=== PATIENT | female | born 1965 | race Caucasian/White ===

== ENCOUNTER → 2019-10-27 | Outpatient (CLI) | payer OTHER ==
[~2019-10-27] MED LIST: ALBU90OI6 INH; ALBUTEROL INH; ALPR.5 PO; BREO ELLIPTA 11 EACH INH; Bactrim Ds Tab1 EACH PO; CEPH500 PO; ERYT.5TO OS; ESCI10 PO; GABAPENTIN; HYDACE5 PO; KLONAPIN; LEXAPRO; MVI; OXYC30 PO; OXYCODONE; PIRO10 PO; PRO; QUET25 PO; RISPERDAL PO; ROXICODONE; SUBOXONE 8 MG-1 EACH SL; SULTRIDS PO; SULTRISS PO; TOPAMAX PO; TOPI100 PO; TRAM50 PO; VARE1 PO
== END ==
LOC: LAB SHORT 08:24 → PLD 08:24
DX: R93.89 Abnormal findings on diagnostic imaging of other specified body structures (principal)
CPT/HCPCS: 88305

== ENCOUNTER → 2020-02-13 | Outpatient (CLI) | payer OTHER ==
[~2020-02-13] MED LIST changes: +ALBU8HFA2 INH; +ASCO500 PO; +ASPI81CH PO; +Chantix1 MG; +Co Q-1010 MG PO; +GABA300 PO; +METO25ER PO; +PRAV20 PO
[2020-02-14 10:45] LABS: Candida species (DNA Probe) Negative (NEGATIVE); G. vaginalis (DNA Probe) Positive (NEGATIVE); T. vaginalis (DNA Probe) Negative (NEGATIVE)
== END ==
LOC: LAB SHORT 18:49
PROVIDERS: Obstetrics & Gynecology
DX: N89.8 Other specified noninflammatory disorders of vagina (principal)
CPT/HCPCS: 87480; 87510; 87660

== ENCOUNTER 2020-05-01 12:00 | Day surgery (SDC) | payer OTHER ==
[~2020-05-01] VITALS: Ht 160 cm; Wt 63.8 kg
[~2020-05-01 12:00] MED LIST changes: -Co Q-1010 MG PO; -PRAV20 PO
[2020-05-01] MEDS ORDERED: PRAV20 PO (13:21)
[2020-05-01] MEDS ORDERED: Co Q-1010 MG PO (13:22)
--- NOTE | 2020-05-01 13:25 | NUR ---
05/01/20 1325 Arti Anderson V PT HAD IV PLACED OVER AT HOSPITAL. IV HOOKED UP TO LR AND FLUSHED WITH LR. IV FLOWING AT ADEQUATE RATE. NO SIGN OF INFILTRATION. PT RESTING IN BED, SIDE RAILS IN PLACE, CALL LIGHT WITHIN REACH, VSS. PT TEACHING COMPLETED. PT DENIES ANY PAIN, DISCOMFORT, AND QUESTIONS AT THIS TIME.
--- NOTE | 2020-05-01 15:38 | NUR ---
05/01/20 1538 Michelle Cat PT MEDICATED WITH IV FENTANYL FOR PAIN CONTROL, PT RATES IT AT ABOUT A 5 IN HER ABDOMEN, CRAMPING IN NATURE PER PT. PT STATES IT IS TOLERABLE AT THIS TIME AND IS READY TO GO HOME. [facility] CALLED IN PERSCRIPTION
== END 2020-05-01 15:34 | disposition home or self-care (01) ==
LOC: ORSCSDS 12:00
PROVIDERS: Obstetrics & Gynecology
PROC: 0UB97ZX Excision of Uterus, Via Natural or Artificial Opening, Diagnostic (ICD-10-PCS; principal; 2020-05-01 14:00)
PROC: 0UDB7ZX Extraction of Endometrium, Via Natural or Artificial Opening, Diagnostic (ICD-10-PCS; principal; 2020-05-01 14:00)
PROC: 0UJD8ZZ Inspection of Uterus and Cervix, Via Natural or Artificial Opening Endoscopic (ICD-10-PCS; principal; 2020-05-01 14:00)
DX: R93.89 Abnormal findings on diagnostic imaging of other specified body structures (principal); D26.1 Other benign neoplasm of corpus uteri; J44.9 Chronic obstructive pulmonary disease, unspecified; Z79.82 Long term (current) use of aspirin; Z79.899 Other long term (current) drug therapy; F17.210 Nicotine dependence, cigarettes, uncomplicated
CPT/HCPCS: 88305; J1100; J1885; J2250; J2370; J2405; J2704; J3010

== ENCOUNTER → 2021-04-02 | Outpatient (CLI) | payer OTHER ==
[~2021-04-02] MED LIST changes: +Co Q-1010 MG PO; +PRAV20 PO
[2021-04-02 16:27] LABS: Protein, Urine Quantitative 6.8 mg/dL (0.0-11.9)
[2021-04-02 16:37] LABS: Microalbumin, Urine Quant. <5.000 mg/L (0.000-20.000)
== END | disposition home or self-care (01) ==
LOC: LAB SHORT 09:30 → LAB FUT 03-31 14:05
PROVIDERS: Internal Medicine Nephrology
DX: N18.2 Chronic kidney disease, stage 2 (mild) (principal); D63.1 Anemia in chronic kidney disease; N25.81 Secondary hyperparathyroidism of renal origin; E55.9 Vitamin D deficiency, unspecified; E78.00 Pure hypercholesterolemia, unspecified; R94.6 Abnormal results of thyroid function studies; R94.5 Abnormal results of liver function studies
CPT/HCPCS: 81050; 82043; 82570; 84156